=== PATIENT | male | born 1965 | race Caucasian/White ===

== ENCOUNTER 2024-01-17 20:00 | Emergency (ER) | payer MEDICAID ==
[~2024-01-17] VITALS: Ht 177.8 cm; Wt 77.1 kg
[2024-01-17 20:39] LABS: BASOPHILS % (AUTO) 0.7 % (0.0-2.0); EOSINOPHILS # (AUTO) 0.1 K/uL (0.0-0.7); EOSINOPHILS % (AUTO) 1.2 % (0.0-7.0); HEMATOCRIT 37.5 % (36.7-47.1); HEMOGLOBIN 12.7 g/dL (12.5-16.3); LYMPHOCYTES # (AUTO) 1.1 K/uL (0.8-4.8); MEAN CORPUSCULAR HEMOGLOBIN 30.3 uug (23.8-33.4); MEAN CORPUSCULAR HGB CONC 34 g/dL (32.5-36.3); MEAN CORPUSCULAR VOLUME 89.7 fL (73.0-96.2); MONOCYTES # (AUTO) 0.4 K/uL (0.1-1.30); MONOCYTES % (AUTO) 5.4 % (0.0-11.0); NEUTROPHILS # (AUTO) 5.3 K/uL (1.8-8.9); NEUTROPHILS % (AUTO) 76.7 % (38.5-71.5); PLATELET COUNT (AUTO) 233 K/uL (152-348); RED BLOOD CELL COUNT(AUTO) 4.18 MIL/uL (4.06-5.63); RED CELL DISTRIBUTION WIDTH 13.5 % (12.1-16.2); WHITE BLOOD COUNT (AUTO) 6.9 K/uL (3.6-10.2)
[2024-01-17 20:51] LABS: CALCIUM 8.5 mg/dL (8.5-10.1); CARBON DIOXIDE 26 mmol/L (21-32); CHLORIDE 108 mmol/L (98-107); CREATININE 0.9 mg/dL (0.6-1.3); GLUCOSE 144 mg/dL (74-106); POTASSIUM 3.3 mmol/L (3.5-5.1); SODIUM SERUM 143 mmol/L (136-145); UREA NITROGEN, BLOOD 13 mg/dL (7-18)
[2024-01-17 20:55] LABS: DIFFERENTIAL COMMENT 1
[2024-01-17 20:57] LABS: ALANINE AMINOTRANSFERASE 18 U/L (16-63); ALBUMIN 3.1 g/dL (3.4-5.0); ALKALINE PHOSPHATASE 85 U/L (50-136); ASPARTATE AMINOTRANSFERASE 5 U/L (15-37); BILIRUBIN,DIRECT 0.1 mg/dL (0.0-0.2); BILIRUBIN,TOTAL 0.3 mg/dL (0.2-1.0); TOTAL PROTEIN, SERUM 6.4 g/dL (6.4-8.2)
[2024-01-17 21:04] LABS: ETHANOL < 3 MG/DL (0-10)
[2024-01-17] MEDS: LORAZEPAM 2 MG/1 ML VIAL IV ONE (21:14)
[2024-01-17] MEDS: IV NORMAL SALINE 500 ML BAG IV ONE (21:14)
[2024-01-17] MEDS ORDERED: LORAZEPAM 2 MG/1 ML VIAL ONE (21:19)
[2024-01-17] MEDS ORDERED: LEVE1000 (22:03)
[2024-01-17] MEDS ORDERED: LISI10TA29 (22:05)
[2024-01-17] MEDS ORDERED: MIRT-121 (22:05)
[2024-01-17] MEDS ORDERED: AMLO5TAB4 (22:05)
[2024-01-17] MEDS ORDERED: ATOR20TA (22:05)
[2024-01-17] MEDS: POTASSIUM CHLORIDE 20 MEQ TAB.PRT.SR PO ONE (22:08)
[2024-01-17] MEDS: levETIRAcetam IV 1,000 MG in IV DEXTROSE 5% 100 ML IV ONE (22:08)
[2024-01-17] MEDS ORDERED: POTASSIUM CHLORIDE 20 MEQ TAB.PRT.SR ONE (22:10)
[2024-01-17] MEDS ORDERED: levETIRAcetam 500 MG/5 ML VIAL IV ONE (22:10)
[2024-01-17] MEDS ORDERED: LORA0.5T48 PO (23:08)
[2024-01-17 23:24] VITALS: BP 110/80; TEMP 98.1; O2SAT 98
== END 2024-01-17 23:24 | disposition home or self-care (01) ==
LOC: ER 20:02
DX: R56.9 Unspecified convulsions (principal); Z86.73 Personal history of transient ischemic attack (TIA), and cerebral infarction without residual deficits; Z98.890 Other specified postprocedural states; Z79.899 Other long term (current) drug therapy
CPT/HCPCS: 80076; 80048; 82962; 85025; 36415; 93005; 71045; 70450; 99285; 96361; 96365; 96375; 80299; 80320; J1953; J2060; J7040; A4606; A4663; G0480

== ENCOUNTER 2024-07-30 19:58 | Inpatient (IN) | payer MEDICAID ==
[~2024-07-30] VITALS: Ht 177.8 cm; Wt 81.6 kg
[~2024-07-30 19:58] MED LIST: AMLO5TAB4; ATOR20TA PO; LEVE1000 PO; LISI10TA29 PO; LORA0.5T48 PO; MIRT-121
[2024-07-30] MEDS ORDERED: LORAZEPAM 2 MG/1 ML VIAL ONE (20:06)
[2024-07-30] MEDS ORDERED: levETIRAcetam 500 MG/5 ML VIAL IV ONE ×2 (20:06→21:18)
[2024-07-30] MEDS: LORAZEPAM 2 MG/1 ML VIAL IV ONE (20:16)
[2024-07-30] MEDS: levETIRAcetam IV 500 MG in IV DEXTROSE 5% 100 ML IV ONE ×2 (20:16→21:23)
[2024-07-30 20:41] LABS: BASOPHILS % (AUTO) 0.6 % (0.0-2.0); EOSINOPHILS # (AUTO) 0.1 K/uL (0.0-0.7); EOSINOPHILS % (AUTO) 1.2 % (0.0-7.0); HEMATOCRIT 42.5 % (36.7-47.1); HEMOGLOBIN 14.2 g/dL (12.5-16.3); LYMPHOCYTES # (AUTO) 1.2 K/uL (0.8-4.8); LYMPHOCYTES % (AUTO) 17.1 % (20.5-51.5); MEAN CORPUSCULAR HEMOGLOBIN 29.9 uug (23.8-33.4); MEAN CORPUSCULAR HGB CONC 33 g/dL (32.5-36.3); MEAN CORPUSCULAR VOLUME 89.6 fL (73.0-96.2); MONOCYTES # (AUTO) 0.5 K/uL (0.1-1.30); MONOCYTES % (AUTO) 6.5 % (0.0-11.0); NEUTROPHILS # (AUTO) 5.2 K/uL (1.8-8.9); NEUTROPHILS % (AUTO) 74.6 % (38.5-71.5); PLATELET COUNT (AUTO) 211 K/uL (152-348); RED BLOOD CELL COUNT(AUTO) 4.75 MIL/uL (4.06-5.63)
[2024-07-30 20:49] LABS: CARBON DIOXIDE 21 mmol/L (21-32); CHLORIDE 103 mmol/L (98-107); CREATININE 1.2 mg/dL (0.6-1.3); GLUCOSE 182 mg/dL (74-106); POTASSIUM 3.3 mmol/L (3.5-5.1); SODIUM SERUM 140 mmol/L (136-145); UREA NITROGEN, BLOOD 19 mg/dL (7-18)
[2024-07-30 20:50] LABS: DIFFERENTIAL COMMENT 1
[2024-07-30 20:53] LABS: ETHANOL < 3 MG/DL (0-10)
[2024-07-30 20:57] LABS: ALANINE AMINOTRANSFERASE 23 U/L (16-63); ALBUMIN 3.6 g/dL (3.4-5.0); ALKALINE PHOSPHATASE 85 U/L (50-136); ASPARTATE AMINOTRANSFERASE 13 U/L (15-37); BILIRUBIN,DIRECT 0.1 mg/dL (0.0-0.2); BILIRUBIN,TOTAL 1.2 mg/dL (0.2-1.0); TOTAL PROTEIN, SERUM 7.5 g/dL (6.4-8.2)
[2024-07-30 21:03] LABS: LACTIC ACID 7.9 mmol/L (0.4-2.0)
[2024-07-30] MEDS ORDERED: hydrOXYzine HCL 25 MG TABLET ONE (23:21)
[2024-07-30] MEDS: hydrOXYzine HCL 25 MG TABLET PO ONE (23:23)
[2024-07-31] MEDS ORDERED: ONDANSETRON 4 MG/2 ML VIAL IV PRN (00:45)
[2024-07-31] MEDS ORDERED: MAGNESIUM HYDROXIDE 30 ML LIQUID UDC PO PRN (00:45)
[2024-07-31] MEDS ORDERED: ACETAMINOPHEN 325 MG TABLET PO PRN (00:45)
[2024-07-31] MEDS ORDERED: POTASSIUM CHLORIDE 20 MEQ TAB.PRT.SR ONE (00:56)
[2024-07-31] MEDS: POTASSIUM CHLORIDE 20 MEQ TAB.PRT.SR PO ONE (00:57)
[2024-07-31 05:17] VITALS: BP 143/53; TEMP 98; O2SAT 98
[2024-07-31 07:02] LABS: BASOPHILS % (AUTO) 0.5 % (0.0-2.0); EOSINOPHILS # (AUTO) 0.1 K/uL (0.0-0.7); EOSINOPHILS % (AUTO) 1.5 % (0.0-7.0); HEMATOCRIT 41.6 % (36.7-47.1); HEMOGLOBIN 14.2 g/dL (12.5-16.3); LYMPHOCYTES # (AUTO) 1.9 K/uL (0.8-4.8); LYMPHOCYTES % (AUTO) 25.6 % (20.5-51.5); MEAN CORPUSCULAR HEMOGLOBIN 30.2 uug (23.8-33.4); MEAN CORPUSCULAR HGB CONC 34 g/dL (32.5-36.3); MEAN CORPUSCULAR VOLUME 88.6 fL (73.0-96.2); MONOCYTES # (AUTO) 0.7 K/uL (0.1-1.30); MONOCYTES % (AUTO) 9.9 % (0.0-11.0); NEUTROPHILS # (AUTO) 4.7 K/uL (1.8-8.9); NEUTROPHILS % (AUTO) 62.5 % (38.5-71.5); PLATELET COUNT (AUTO) 212 K/uL (152-348); RED BLOOD CELL COUNT(AUTO) 4.69 MIL/uL (4.06-5.63); RED CELL DISTRIBUTION WIDTH 12.9 % (12.1-16.2); WHITE BLOOD COUNT (AUTO) 7.4 K/uL (3.6-10.2)
[2024-07-31 07:16] LABS: DIFFERENTIAL COMMENT 1
[2024-07-31 07:17] LABS: CALCIUM 9.2 mg/dL (8.5-10.1); CREATININE 0.9 mg/dL (0.6-1.3); MAGNESIUM 2.2 mg/dL (1.8-2.4)
[2024-07-31 08:00] VITALS: BP 112/74; TEMP 98.5; O2SAT 96
[2024-07-31] MEDS: levETIRAcetam IV 1,500 MG in IV DEXTROSE 5% 100 ML IV SCH (08:53)
[2024-07-31] MEDS: LISINOPRIL 10 MG TABLET PO SCH (08:53)
[2024-07-31] MEDS: PANTOPRAZOLE SODIUM 40 MG VIAL IV SCH (08:53)
[2024-07-31] MEDS: LORAZEPAM 2 MG/1 ML VIAL IV PRN (08:54)
[2024-07-31] MEDS ORDERED: DEXTROSE 5% IV SCH (09:00)
[2024-07-31] MEDS ORDERED: LEVETIRACETAM IV SCH (09:00)
[2024-07-31] MEDS ORDERED: levETIRAcetam 250 MG TABLET PO SCH ×2 (09:00)
[2024-07-31] MEDS ORDERED: AMLODIPINE 5 MG TABLET PO SCH ×2 (09:00)
[2024-07-31 12:00] VITALS: BP 108/70; TEMP 97.4; O2SAT 94
[2024-07-31 15:00] VITALS: BP 86/55; TEMP 98.5; O2SAT 95
[2024-07-31 19:10] VITALS: BP 88/62; TEMP 97.8; O2SAT 95
[2024-07-31] MEDS: ATORVASTATIN 20 MG TABLET PO SCH (20:54)
[2024-08-01 00:15] VITALS: BP 98/62; TEMP 97.6; O2SAT 96
[2024-08-01 05:11] VITALS: BP 99/65; TEMP 97.5; O2SAT 96
[2024-08-01 07:50] VITALS: BP 112/64; TEMP 97.7; O2SAT 97
[2024-08-01 11:55] VITALS: BP 97/59; TEMP 98.7; O2SAT 96
[2024-08-02] MEDS ORDERED: PANTOPRAZOLE SODIUM 40 MG TABLET.DR PO SCH (07:00)
== END 2024-08-01 16:40 | disposition home or self-care (01) | DRG 53 ==
LOC: ER 20:09 → MEDSURG3 07-31 00:38 → TELE3 07-31 00:40
PROVIDERS: ATTEND Nurse Practitioner Acute Care
DX: G40.409 Other generalized epilepsy and epileptic syndromes, not intractable, without status epilepticus (principal); E87.20 Acidosis, unspecified; G93.89 Other specified disorders of brain; E87.6 Hypokalemia; I69.398 Other sequelae of cerebral infarction; G89.28 Other chronic postprocedural pain; E78.5 Hyperlipidemia, unspecified; Z79.899 Other long term (current) drug therapy; Z66 Do not resuscitate; I10 Essential (primary) hypertension
CPT/HCPCS: 36415; 70450; 83605; 83735; 84100; 84484; 85025; A4606; A4663; G0378; G0480; J1953; J2060; J2470